=== PATIENT | male | born 1970 | race Caucasian/White ===

== ENCOUNTER → 2022-01-21 | Outpatient (CLI) | payer OTHER, SELFPAY ==
[2022-01-21 18:12] LABS: Cholesterol 212 mg/dL (200); High Density Lipoprotein 39 mg/dL; PSA,Total - Annual Screen 1.15 ng/mL (0.00-4.00); Triglycerides 259 mg/dL; Very Low Density Lipoprotein 52 mg/dL (5-40)
== END | disposition home or self-care (01) ==
LOC: MTLAB 15:51
PROVIDERS: PCP Family Medicine; Referring Provider Family Medicine; Visit Provider Family Medicine
DX: Z00.00 Encounter for general adult medical examination without abnormal findings (principal); Z12.5 Encounter for screening for malignant neoplasm of prostate
CPT/HCPCS: 36415; 80061; 84153; G0103

== ENCOUNTER → 2025-05-04 | Outpatient (CLI) | payer OTHER, SELFPAY ==
[2025-05-04 11:24] LABS: Hematocrit 43.3 % (40-54); Hemoglobin 15.0 g/dL (13.0-16.5); Immature Granulocytes Count 0.050 X10^3/uL (0.0-0.0); Mean Corp Hgb Conc 34.6 g/dL (32-36); Mean Corpuscular Volume 91.4 fL (80-94); Mean Platelet Vol. 9.3 fl (6.2-12.0); NRBC Flagged by Analyzer 0 % (0-5); Platelet Count 248 K/mm3 (150-450); RBC Distribution Width CV 13.3 % (11.6-14.6); RBC Distribution Width SD 44.8 fl (35.1-43.9); Red Blood Count 4.74 M/mm3 (4.6-6.2); White Blood Count 9.0 K/mm3 (4.4-11.0)
[2025-05-04 13:01] LABS: AST(SGOT) 19 U/L (<=37); Alanine Aminotransfer ALT/SGPT 16 U/L (<=46); Albumin, Serum 4.1 g/dL (3.5-5.0); Alkaline Phosphatase 91 U/L (40-129); Anion Gap 10 (5-15); BUN 16 mg/dL (4-19); BUN/Creat Ratio 16.0 RATIO (10-20); Calcium,Total 9.3 mg/dL (7.6-11.0); Carbon Dioxide 25.0 mmol/L (21.0-32.0); Chloride 105 mmol/L (98-108); Cholesterol 233 mg/dL (<=200); Globulin 2.8 g/dL (2.2-4.2); Glucose 92 mg/dL (70-99); Low Density Lipoprotein Calc. 154 mg/dL; Potassium 4.3 mmol/L (3.3-5.1); Triglycerides 122 mg/dL; Very Low Density Lipoprotein 24 mg/dL (5-40); cholesterol:hdl ratio screen 4.26
[2025-05-07 14:08] LABS: PSA, Total 1.2 ng/mL (0.0-4.0)
== END | disposition home or self-care (01) ==
LOC: LAB 10:51
PROVIDERS: PCP Family Medicine; Referring Provider Family Medicine; Visit Provider Family Medicine
DX: Z00.00 Encounter for general adult medical examination without abnormal findings (principal); Z12.5 Encounter for screening for malignant neoplasm of prostate; Z13.6 Encounter for screening for cardiovascular disorders; E78.2 Mixed hyperlipidemia
CPT/HCPCS: 36415; 80053; 80061; 83036; 84153; 84443; 85025

== ENCOUNTER 2025-06-22 07:52 | Day surgery (SDC) | payer OTHER, SELFPAY ==
[2025-06-22] VITALS (8 sets, daily range): BP systolic 122–147; BP diastolic 76–88; PULSE 46–65; RESP 16; TEMP 36.3–36.8; O2SAT 96–98; BMI 31.0
--- OUTSIDE RECORDS SUMMARY | 2025-06-22 07:56 | XMS RPT_ITS | CCD ---
Author Organization [facility] Care Team Providers Care Molder Meat Name Role Phone Megan Morales DO Primary Care Physician Megan Morales DO Attending Physician Megan Morales DO Referring Provider Megan Evans Referring Unavailable Carmen VSGrady, Megan Primary Care Unavailable Megan Evans Attending Unavailable Kang Rodríguez Attending Unavailable Carmen VSC, Megan Primary Care Unavailable Megan Evans Referring Unavailable Results Test Name Value Interpretation Reference Range Facility PSA Total (Rflx Free)on 04-17 COMMENT Comment Normal . [facility] Comment on above: Result Comment: The percent free PSA is performed on a reflex basis only when the total PSA is between 4.0 and 10.0 ng/mL. Performed at: - [address] [id number] Recovery Engineer: Pedro Harrington PhD, Phone: [phone] Performed By: #### L 501.7885, L3110.0100, L100.0100, L500.4050, L501.9520, L500.4100 #### [facility] [address] [place], [address] PSA, TOTAL 1.2 ng/mL Normal 0.0-4.0 [facility] Comment on above: Result Comment: Herbie limon ECLIA methodology. According to the [place] [employer], Serum PSA should decrease and remain at undetectable levels after radical prostatectomy. The AUA defines biochemical recurrence as an initial PSA value 0.2 ng/mL or greater followed by a subsequent confirmatory PSA value 0.2 ng/mL or greater. Values obtained with different assay methods or kits cannot be used interchangeably. Results cannot be interpreted as absolute evidence of the presence or absence of malignant disease. Performed By: #### L 501.9985, L3110.0100, L100.0100, L500.4050, L501.9520, L500.4100 #### [facility] [address] [place], [address] Absolute lymphocyte countOrd ered By: Megan Morales on 05-04-2025 Lymphocytes Auto (Unsp spec) [#/Vol] 4.66 10*3/uL High 0.83-4.51 [facility] Absolute neutrophil countOrd ered By: Megan Morales on 05-04-2025 Neutrophils (Bld) [#/Vol] 3.4 10*3/uL 2.0-7.7 [facility] Anion gap in Serum or Plasma Ordered By: Megan Morales on 05-04-2025 Anion gap [Moles/Vol] 10 mmol/L 5-15 [facility] Automated lymphocyte count a s percentage of total leukocytesOrdered By: Megan Morales on 05-04-2025 Lymphocytes/100 WBC Auto (Unsp spec) 51.7 % High 19-41 [facility] BUN/creatinine ratioOrdered By: Meganmaximino Morales on 05-04-2025 Urea nitrogen/Creatinine [Mass ratio] 16.0 mg/mg 10-20 [facility] Basophil percentageOrdered B y: Megan Morales on 05-04-2025 Basophils/100 WBC (Bld) 0.3 % 0-1 [facility] Bilirubin, totalOrdered By: Meganmaximino Morales on 05-04-2025 Bilirubin [Mass/Vol] 0.53 mg/dL 0.00-1.30 [facility] CBC W/Diff, Automatedon 04-16 Absolute Lymph 4.66 X10 3/uL High 0.83-4.51 [facility] Comment on above: Performed By: #### L 501.9985, L3110.0100, L100.0100, L500.4050, L501.9520, L500.4100 #### [facility] [address] [place], [address] Absolute Neut 3.4 X10 3/uL Normal 2.0-7.7 [facility] Comment on above: Performed By: #### L 501.9985, L3110.0100, L100.0100, L500.4050, L501.9520, L500.4100 #### [facility] [address] [place], [address] Basophils/100 WBC (Bld) 0.3 % Normal 0-1 [facility] Comment on above: Performed By: #### L 501.9985, L3110.0100, L100.0100, L500.4050, L501.9520, L500.4100 #### [facility] [address] [place], [address] Eosinophils/100 WBC (Bld) 1.4 % Normal 0-5 [facility] Comment on above: Performed By: #### L 501.9985, L3110.0100, L100.0100, L500.4050, L501.9520, L500.4100 #### [facility] [address] [place], [address] Erythrocyte distribution width (RBC) [Ratio] 13.3 % Normal 11.6-14.6 [facility] Comment on above: Performed By: #### L 501.9985, L3110.0100, L100.0100, L500.4050, L501.9520, L500.4100 #### [facility] [address] [place], [address] Hematocrit (Bld) [Volume fraction] 43.3 % Normal 40-54 [facility] Comment on above: Performed By: #### L 501.9985, L3110.0100, L100.0100, L500.4050, L501.9520, L500.4100 #### [facility] [address] [place], [address] Hemoglobin (Bld) [Mass/Vol] 15.0 g/dL Normal 13.0-16.5 [facility] Comment on above: Performed By: #### L 501.9985, L3110.0100, L100.0100, L500.4050, L501.9520, L500.4100 #### [facility] [address] [place], [address] IG% 0.600 Normal 0.0-0.9 [facility] Comment on above: Result Comment: IG% - Immature Granulocytes (promyelocytes, myelocytes and metamyelocytes) > 1% indicates that a LEFT SHIFT is Present. Performed By: #### L 501.9985, L3110.0100, L100.0100, L500.4050, L501.9520, L500.4100 #### [facility] [address] [place], [address] Lymphocytes/100 WBC (Bld) 51.7 % High 19-41 [facility] Comment on above: Performed By: #### L 501.9985, L3110.0100, L100.0100, L500.4050, L501.9520, L500.4100 #### [facility] [address] [place], [address] MCH (RBC) [Entitic mass] 31.6 pg Normal 27.0-32.0 [facility] Comment on above: Performed By: #### L 501.9985, L3110.0100, L100.0100, L500.4050, L501.9520, L500.4100 #### [facility] [address] [place], [address] MCHC (RBC) [Mass/Vol] 34.6 g/dL Normal 32-36 [facility] Comment on above: Performed By: #### L 501.9985, L3110.0100, L100.0100, L500.4050, L501.9520, L500.4100 #### [facility] [address] [place], [address] MCV (RBC) [Entitic vol] 91.4 fL Normal 80-94 [facility] Comment on above: Performed By: #### L 501.9985, L3110.0100, L100.0100, L500.4050, L501.9520, L500.4100 #### [facility] [address] [place], [address] Monocytes/100 WBC (Bld) 8.1 % Normal 0-10 [facility] Comment on above: Performed By: #### L 501.9985, L3110.0100, L100.0100, L500.4050, L501.9520, L500.4100 #### [facility] [address] [place], [address] Neutrophils/100 WBC (Bld) 37.9 % Low 47-70 [facility] Comment on above: Performed By: #### L 501.9985, L3110.0100, L100.0100, L500.4050, L501.9520, L500.4100 #### [facility] [address] [place], [address] Nucleated RBC (Bld) [#/Vol] 0 10*3/uL Normal 0-5 [facility] Comment on above: Performed By: #### L 501.9985, L3110.0100, L100.0100, L500.4050, L501.9520, L500.4100 #### [facility] [address] [place], [address] Platelet mean volume (Bld) [Entitic vol] 9.3 fL Normal 6.2-12.0 [facility] Comment on above: Performed By: #### L 501.9985, L3110.0100, L100.0100, L500.4050, L501.9520, L500.4100 #### [facility] [address] [place], [address] Platelets (Bld) [#/Vol] 248 10*3/uL Normal 150-450 [facility] Comment on above: Performed By: #### L 501.9985, L3110.0100, L100.0100, L500.4050, L501.9520, L500.4100 #### [facility] [address] [place], [address] RBC (Bld) [#/Vol] 4.74 10*6/uL Normal 4.6-6.2 [facility] Comment on above: Performed By: #### L 501.9985, L3110.0100, L100.0100, L500.4050, L501.9520, L500.4100 #### [facility] [address] [place], [address] RDW SD 44.8 fl High 35.1-43.9 [facility] Comment on above: Performed By: #### L 501.9985, L3110.0100, L100.0100, L500.4050, L501.9520, L500.4100 #### [facility] [address] [place], [address] WBC (Bld) [#/Vol] 9.0 10*3/uL Normal 4.4-11.0 [facility] Comment on above: Performed By: #### L 501.9985, L3110.0100, L100.0100, L500.4050, L501.9520, L500.4100 #### [facility] [address] [place], [address] Calculated very low density lipoprotein (VLDL) cholesterol measurementOrdered By: Megan Morales on 05-04-2025 Calculated very low density lipoprotein (VLDL) cholesterol measurement 24 mg/dL 5-40 [facility] Carbon dioxide, total [Moles /volume] in Central venous bloodOrdered By: Megan Morales on 05-04-2025 CO2 [Moles/Vol] 25.0 mmol/L 21.0-32.0 [facility] Chloride assayOrdered By: Casey Morales on 05-04-2025 Chloride [Moles/Vol] 105 mmol/L 98-108 [facility] Comprehensive Metabolic Prof ilon 05-04-2025 Albumin [Mass/Vol] 4.1 g/dL Normal 3.5-5.0 [facility] Comment on above: Performed By: #### L 501.9985, L3110.0100, L100.0100, L500.4050, L501.9520, L500.4100 #### [facility] [address] [place], [address] Albumin/Globulin [Mass ratio] 1.5 {ratio} Normal 0.9-2.4 [facility] Comment on above: Performed By: #### L 501.9985, L3110.0100, L100.0100, L500.4050, L501.9520, L500.4100 #### [facility] [address] [place], [address] ALK PHOS 91 U/L Normal 40-129 [facility] Comment on above: Performed By: #### L 501.9985, L3110.0100, L100.0100, L500.4050, L501.9520, L500.4100 #### [facility] [address] [place], [address] ALT [Catalytic activity/Vol] 16 U/L Normal <=46 [facility] Comment on above: Performed By: #### L 501.9985, L3110.0100, L100.0100, L500.4050, L501.9520, L500.4100 #### [facility] [address] [place], [address] AST [Catalytic activity/Vol] 19 U/L Normal <=37 [facility] Comment on above: Performed By: #### L 501.9985, L3110.0100, L100.0100, L500.4050, L501.9520, L500.4100 #### [facility] [address] [place], [address] Bilirubin [Mass/Vol] 0.53 mg/dL Normal 0.00-1.30 [facility] Comment on above: Performed By: #### L 501.9985, L3110.0100, L100.0100, L500.4050, L501.9520, L500.4100 #### [facility] [address] [place], [address] BUN/CRE 16.0 RATIO Normal 10-20 [facility] Comment on above: Performed By: #### L 501.9985, L3110.0100, L100.0100, L500.4050, L501.9520, L500.4100 #### [facility] [address] [place], [address] Calcium [Mass/Vol] 9.3 mg/dL Normal 7.6-11.0 [facility] Comment on above: Performed By: #### L 501.9985, L3110.0100, L100.0100, L500.4050, L501.9520, L500.4100 #### [facility] [address] [place], [address] Chloride [Moles/Vol] 105 mmol/L Normal 98-108 [facility] Comment on above: Performed By: #### L 501.9985, L3110.0100, L100.0100, L500.4050, L501.9520, L500.4100 #### [facility] [address] [place], [address] CO2 [Moles/Vol] 25.0 mmol/L Normal 21.0-32.0 [facility] Comment on above: Performed By: #### L 501.9985, L3110.0100, L100.0100, L500.4050, L501.9520, L500.4100 #### [facility] [address] [place], [place], [phone] Creatinine [Mass/Vol] 0.97 mg/dL Normal 0.70-1.20 [facility] Comment on above: Performed By: #### L 501.9985, L3110.0100, L100.0100, L500.4050, L501.9520, L500.4100 #### [facility] [address] [place], [place], [id number] ([phone]) GAP 10 Normal 5-15 [facility] Comment on above: Performed By: #### L 501.9985, L3110.0100, L100.0100, L500.4050, L501.9520, L500.4100 #### [facility] [address] [place], [place], [phone] ([address] GFR/1.73 sq M.predicted among non-blacks MDRD (S/P/Bld) [Vol rate/Area] 92 mL/min/{1.73_m2} Normal >60 [facility] Comment on above: Result Comment: mL/m in/1.73m2 CKD-EPI Creatinine Equation (2020) Performed By: #### L 501.9985, L3110.0100, L100.0100, L500.4050, L501.9520, L500.4100 #### [facility] [address] [place], [place], [phone] Globulin (S) [Mass/Vol] 2.8 g/dL Normal 2.2-4.2 [facility] Comment on above: Performed By: #### L 501.9985, L3110.0100, L100.0100, L500.4050, L501.9520, L500.4100 #### [facility] [address] [place], [address] Glucose [Mass/Vol] 92 mg/dL Normal 70-99 [facility] Comment on above: Performed By: #### L 501.9985, L3110.0100, L100.0100, L500.4050, L501.9520, L500.4100 #### [facility] [address] [place], [address] Potassium [Moles/Vol] 4.3 mmol/L Normal 3.3-5.1 [facility] Comment on above: Performed By: #### L 501.9985, L3110.0100, L100.0100, L500.4050, L501.9520, L500.4100 #### [facility] [address] [place], [address] Sodium [Moles/Vol] 139 mmol/L Normal 133-145 [facility] Comment on above: Performed By: #### L 501.9985, L3110.0100, L100.0100, L500.4050, L501.9520, L500.4100 #### [facility] [address] [place], [address] T PROT 6.8 g/dL Normal 5.9-8.4 [facility] Comment on above: Performed By: #### L 501.9985, L3110.0100, L100.0100, L500.4050, L501.9520, L500.4100 #### [facility] [address] [place], [address] Urea nitrogen [Mass/Vol] 16 mg/dL Normal 4-19 [facility] Comment on above: Performed By: #### L 501.9985, L3110.0100, L100.0100, L500.4050, L501.9520, L500.4100 #### [facility] [address] [place], [place], [id number] Eosinophil percentageOrdered By: Megan Morales on 05-04-2025 Eosinophils/100 WBC (Bld) 1.4 % 0-5 [facility] Erythrocyte distribution wid th ratioOrdered By: Meganmaximino Morales on 05-04-2025 Erythrocyte distribution width (RBC) [Ratio] 13.3 % 11.6-14.6 [facility] Erythrocyte distribution wid th standard deviationOrdered By: Meganmaximino Morales on 05-04-2025 Erythrocyte distribution width (RBC) [Ratio] 44.8 fl High 35.1-43.9 [facility] Glomerular filtration rate ( GFR) estimation/1.73 sq m using serum, plasma, or whole bOrdered By: Meganmaximino Morales on 05-04-2025 GFR/1.73 sq M.predicted among non-blacks MDRD (S/P/Bld) [Vol rate/Area] 92 mL/min/{1.73_m2} >60 [facility] Comment on above: mL/min/1.73m2 CKD-EP I Creatinine Equation (2020) Hematocrit Auto (Bld) [Volum e fraction]Ordered By: Megan Morales on 05-04-2025 Hematocrit (Bld) [Volume fraction] 43.3 % 40-54 [facility] Hemoglobin A1con 05-04-2025 HbA1c (Bld) [Mass fraction] 5.2 % Normal <=5.6 [facility] Comment on above: Result Comment: Norm al < 5.7 % Prediabetic 5.7 - 6.4 % Diabetic >or= 6.5 % Please note range changes. Performed By: #### L 501.9985, L3110.0100, L100.0100, L500.4050, L501.9520, L500.4100 #### [facility] [address] [place], [address] Hemoglobin A1c percentageOrd ered By: Megan Morales on 05-04-2025 HbA1c (Bld) [Mass fraction] 5.2 % <5.7 [facility] Comment on above: Normal < 5.7 % Predi abetic 5.7 - 6.4 % Diabetic >or= 6.5 % Please note range changes. Hemoglobin measurementOrdere d By: Megan Morales on 05-04-2025 Hemoglobin (Bld) [Mass/Vol] 15.0 g/dL 13.0-16.5 [facility] Immature granulocytes/100 WB C Auto (Bld)Ordered By: Megan Morales on 05-04-2025 Immature granulocytes/100 WBC (Bld) 0.600 % 0.0-0.9 [facility] Comment on above: IG% - Immature Granu locytes (promyelocytes, myelocytes and metamyelocytes) > 1% indicates that a LEFT SHIFT is Present. LDL calc ser/plasOrdered By: Megan Morales on 05-04-2025 Cholesterol in LDL [Mass/Vol] 154 mg/dL [facility] Comment on above: Jwxunnvxlv=597-601 m g/dL & Higher Afao=450 mg/dL or greaterFriedwald Equation for LDL-C Laboratory - Chemistry and C hemistry - challengeOrdered By: Megan Morales on 05-04-2025 AST [Catalytic activity/Vol] 19 U/L <38 [facility] Lipid Profileon 05-04-2025 CHOL:HDL 4.26 Normal [facility] Comment on above: Performed By: #### L 501.9985, L3110.0100, L100.0100, L500.4050, L501.9520, L500.4100 #### [facility] [address] [place], [place], [address] Cholesterol [Mass/Vol] 233 mg/dL High <=200 [facility] Comment on above: Result Comment: Chol esterol level, Desirable <200 mg/dL Borderline high cholesterol 200-239 mg/dL High cholesterol >=240 mg/dL Recommendations of the NCEP Adult Treatment Panel for the following risk-cutoff thresholds for the [place] population. Performed By: #### L 501.9985, L3110.0100, L100.0100, L500.4050, L501.9520, L500.4100 #### [facility] [address] [place], [address] Cholesterol in HDL [Mass/Vol] 55 mg/dL Normal [facility] Comment on above: Result Comment: Mitzy onal Cholesterol Education Program (NCEP) guidelines: <40 mg/dL: Low HDL-cholesterol (major risk factor for CHD) >= 60 mg/dL: High HDL-cholesterol (negative risk factor for CHD) HDL-cholesterol is affected by a number of factors, e.g. smoking, exercise, hormones, sex and age. Performed By: #### L 501.9985, L3110.0100, L100.0100, L500.4050, L501.9520, L500.4100 #### [facility] [address] [place], [address] Cholesterol in LDL [Mass/Vol] 154 mg/dL Normal [facility] Comment on above: Result Comment: Bord pvwova=440-582 mg/dL Higher Dsgv=399 mg/dL or greater Friedwald Equation for LDL-C Performed By: #### L 501.9985, L3110.0100, L100.0100, L500.4050, L501.9520, L500.4100 #### [facility] [address] [place], [address] Cholesterol in VLDL [Mass/Vol] 24 mg/dL Normal 5-40 [facility] Comment on above: Performed By: #### L 501.9985, L3110.0100, L100.0100, L500.4050, L501.9520, L500.4100 #### [facility] [address] [place], [address] Triglyceride [Mass/Vol] 122 mg/dL Normal [facility] Comment on above: Result Comment: The drugs N-Acetylcysteine and Metamizole may falsely depress this assay. Normal range: <150 mg/dL Borderline High: 150-199 mg/dL High: 200-499 mg/dL Very High: >500 mg/dL Performed By: #### L 501.9985, L3110.0100, L100.0100, L500.4050, L501.9520, L500.4100 #### [facility] [place], [address] MCV (mean corpuscular volume ) determinationOrdered By: Megan Morales on 05-04-2025 MCV (RBC) [Entitic vol] 91.4 fL 80-94 [facility] Mean corpuscular hemoglobin (MCH) determinationOrdered By: Megan Morales on 05-04-2025 MCH (RBC) [Entitic mass] 31.6 pg 27.0-32.0 [facility] Mean corpuscular hemoglobin concentration (MCHC) determinationOrdered By: Meganmaximino Morales on 05-04-2025 MCHC (RBC) [Mass/Vol] 34.6 g/dL 32-36 [facility] Mean platelet volume determi nationOrdered By: Megan Morales on 05-04-2025 Platelet mean volume (Bld) [Entitic vol] 9.3 fL 6.2-12.0 [facility] Monocyte percentageOrdered B y: Megan Morales on 05-04-2025 Monocytes/100 WBC (Bld) 8.1 % 0-10 [facility] Neutrophil percentageOrdered By: Meganmaximino Morales on 05-04-2025 Neutrophils/100 WBC (Bld) 37.9 % Low 47-70 [facility] No Panel InformationOrdered By: Megan Morales on 05-04-2025 Prostate Specific Antigen Comment . [facility] Comment on above: The percent free PSA is performed on a reflex basis onlywhen the total PSA is between 4.0 and 10.0 ng/mL.Performed at: [facility] [address] [id number] Director: Pedro Harrington PhD, Phone: [phone] Nucleated red blood cell per centageOrdered By: Megan Morales on 05-04-2025 Nucleated RBC/100 WBC (Bld) [Ratio] 0 % 0-5 [facility] Platelet countOrdered By: Casey Morales on 05-04-2025 Platelets (Bld) [#/Vol] 248 10*3/uL 150-450 [facility] Potassium measurement (mass/ volume)Ordered By: Megan Morales on 05-04-2025 Potassium (Unsp spec) [Mass/Vol] 4.3 mmol/L 3.3-5.1 [facility] RBC Auto (Bld) [#/Vol]Ordere d By: Megan Morales on 05-04-2025 RBC (Bld) [#/Vol] 4.74 10*6/uL 4.6-6.2 [facility] Screening total cholesterol/ high density lipoprotein (HDL) cholesterol ratioOrdered By: Megan Morales on 05-04-2025 Cholesterol.total/Choles terol in HDL [Mass ratio] 4.26 {ratio} [facility] Serum creatinine measurement (mass/volume)Ordered By: Megan Morales on 05-04-2025 Creatinine [Mass/Vol] 0.97 mg/dL 0.70-1.20 [facility] Serum globulin measurementOr dered By: Megan Morales on 05-04-2025 Globulin (S) [Mass/Vol] 2.8 g/dL 2.2-4.2 [facility] Serum glucose measurement (m ass/volume)Ordered By: Megan Morales on 05-04-2025 Glucose [Mass/Vol] 92 mg/dL 70-99 [facility] Serum or plasma alanine donahue otransferase (ALT) measurementOrdered By: Megan Morales on 05-04-2025 ALT [Catalytic activity/Vol] 16 U/L <47 [facility] Serum or plasma albumin ander urement (mass/volume)Ordered By: Meagn Morales on 05-04-2025 Albumin [Mass/Vol] 4.1 g/dL 3.5-5.0 [facility] Serum or plasma albumin/glob ulin mass ratioOrdered By: Megan Morales on 05-04-2025 Albumin/Globulin [Mass ratio] 1.5 {ratio} 0.9-2.4 [facility] Serum or plasma alkaline federico sphatase measurementOrdered By: Megan Morales on 05-04-2025 ALP [Catalytic activity/Vol] 91 U/L 40-129 [facility] Serum or plasma calcium ander urement (mass/volume)Ordered By: Megan Morales on 05-04-2025 Calcium [Mass/Vol] 9.3 mg/dL 7.6-11.0 [facility] Serum or plasma cholesterol in HDL measurement (mass/volume)Ordered By: Megan Morales on 05-04-2025 Cholesterol in HDL [Mass/Vol] 55 mg/dL >40 [facility] Comment on above: National Cholesterol Education Program (NCEP) guidelines:<40 mg/dL: Low HDL-cholesterol (major risk factor for CHD)>= 60 mg/dL: High HDL-cholesterol (negative risk factor for CHD)HDL-cholesterol is affected by a number of factors, e.g. smoking, exercise, hormones, sex and age. Serum or plasma cholesterol measurement (mass/volume)Ordered By: Megan Morales on 05-04-2025 Cholesterol [Mass/Vol] 233 mg/dL High <201 [facility] Comment on above: Cholesterol level, D esirable <200 mg/dLBorderline high cholesterol 200-239 mg/dLHigh cholesterol >=240 mg/dLRecommendations of the NCEP Adult Treatment Panel for the following risk-cutoff thresholds for the [place] Citizen [place] population. Serum or plasma urea nitroge n measurement (mass/volume)Ordered By: Megan Morales on 05-04-2025 Urea nitrogen [Mass/Vol] 16 mg/dL 4-19 [facility] Sodium levelOrdered By: Werner Morales on 05-04-2025 Sodium [Moles/Vol] 139 mmol/L 133-145 [facility] TSH DL <= 0.005 mIU/L QnOrde red By: Megan Morales on 05-04-2025 TSH Qn 2.040 uIU/mL 0.300-4.200 [facility] Thyroid Stim Hormone (TSH)on 05-04-2025 TSH 2.040 uIU/mL Normal 0.300-4.200 [facility] Comment on above: Performed By: #### L 501.9985, L3110.0100, L100.0100, L500.4050, L501.9520, L500.4100 #### [facility] [address] [place], [address] Total proteinOrdered By: Lilian Morales on 05-04-2025 Protein [Mass/Vol] 6.8 g/dL 5.9-8.4 [facility] Triglycerides measurementOrd ered By: Megan Morales on 05-04-2025 Triglyceride [Mass/Vol] 122 mg/dL <199 [facility] Comment on above: The drugs N-Acetylcy steine and Metamizole may falsely depress this assay. Normal range: <150 mg/dLBorderline High: 150-199 mg/dLHigh: 200-499 mg/dLVery High: >500 mg/dL White blood cell (WBC) count Ordered By: Megan Morales on 05-04-2025 WBC (Bld) [#/Vol] 9.0 10*3/uL 4.4-11.0 [facility] Basophil percentageon 2021 Cholesterol [Mass/Vol] 212 mg/dL <200 [facility] Work Phone: Comment on above: <200 mg/dL Desirable 200-240 mg/dL Borderline >240 mg/dL High Risk Triglyceride [Mass/Vol] 259 mg/dL [facility] Work Phone: Comment on above: The drugs N-Acetylcy steine and Metamizole may falsely depress this assay.Serum Triglycerides Reference Interval Normal <150 mg/dL Borderline high 150 - 199 mg/dL High 200 - 499 mg/dL Very High > or = 500 mg/dL No Panel Informationon 01-21 Prostate Specific Antigen Screen 1.15 ng/mL 0.00-4.00 [facility] Work Phone: Comment on above: This test was perfor med using the TPSA assay method for the[facility] chemistry system. Values obtained with differentassay methods cannot be used interchangably.When changing PSA assays in the course of monitoring apatient, additional sequential testing should be carriedout to confirm baseline values. Serum or plasma cholesterol in HDL measurement (mass/volume)on 01-21-2022 Cholesterol in HDL [Mass/Vol] 39 mg/dL [facility] Work Phone: Comment on above: The drugs N-Acetylcy steine and Metamizole may falsely depress this assay. Reference Range HDL <40 mg/dL Low HDL Cholesterol HDL >or= 60 mg/dL High HDL Cholesterol Serum or plasma cholesterol in VLDL measurement (mass/volume)on 01-21-2022 Cholesterol in VLDL [Mass/Vol] 52 mg/dL 5-40 [facility] Work Phone: Serum or plasma low density lipoprotein (LDL) cholesterol measurement (mass/volume)on 01-21-2022 Cholesterol in LDL [Mass/Vol] 121 mg/dL 0-130 [facility] Work Phone: Encounters Encounter Date Encounter Type Care Provider Facility Start: 06-22-2025 ambulatory Kang Serrato lity:[facility] Start: 06-01-2025 Encounter for genera l adult medical examination without abnormal findings Megan Morales [facility] Start: 05-04-2025 End: 05-04-2025 ambulatory Meganfer Penanger DO Work Phone: -Laboratory Start: 05-04-2025 End: 05-04-2025 Patient encounter procedure Meganfer Penanger DO -Laboratory Work Phone: Start: 05-04-2025 End: 05-04-2025 ambulatory Megan Carmen [facility] Facility:[facility] Start: 01-21-2022 End: 01-21-2022 Patient encounter procedure [facility]-Laboratory, [place] Procedures Date Procedure Procedure Detail Performing Clinician Start: 05-04-2025 Prostate specific an tigen measurement Megan Carmen DO Work Phone: Comment on above: [employer] ECLIA methodol ogy.According to the [employer] [place] [employer], Serum PSAshould decrease and remain at undetectable levels afterradical prostatectomy. The AUA defines biochemicalrecurrence as an initial PSA value 0.2 ng/mL or greaterfollowed by a subsequent confirmatory PSA value 0.2 ng/mLor greater. Values obtained with different assay methods orkits cannot be used interchangeably. Results cannot beinterpreted as absolute evidence of the presence or absenceof malignant disease. Payers Date Payer Category Payer Self-pay [id number] 2025 Unknown [id number] Private Health Insurance SELF PAY INSURAN [id number] Unknown [id number] Unknown [id number] Social History Date Type Detail [facility] Work Phone: Start: 1970 Sex Assigned At Male [facility] Tobacco smoking stat [facility] Unknown if ever smoked [facility] Work Phone: Sex Male [facility] Evaluation note Note Date & Type Note Facility Evaluation note No assessment information availa ble [facility] Work Phone: Reason for referral (narrative) Note Date & Type Note Facility Reason for referral (narrative) No reason for referral information available [facility] Work Phone: Summary Purpose Family History No Family History Records Found Advance Directives No Advanced Directives Records Found Additional Source Comments Goals (unrecognized section and content) Goals may be documented in a n alternate sectionGoals may be documented in an alternate section Care Teams (unrecognized sec tion and content) Team Status: Active Member Role/Relationship Status Dates SANDHYA MEYERS Primary care physician Active Megan SARMIENTO DO Primary care physician Active Team Status: Inactive Member Role/Relationship Status Dates Megan SARMIENTO, Primary care physician Active Start: May 04, 2025 End: May 04, 2025 Megan Carmen [facility], DO Attending physician Active Start: May 04, 2025 End: May 04, 2025 Megan Carmen [facility], DO Referring Provider Active Start: May 04, 2025 End: May 04, 2025 (unrecognized sect ion and content) No Status Records Found INFORMATION SOURCE (unrecogn ized section and content) DATE CREATED AUTHOR 06/22/2025 [facility] FOR RECORDS PERTAINING TO PATIENTS WHO ARE OR HAVE BEEN ENROLLED IN A CHEMICAL DEPENDENCY/SUBSTANCEABUSE PROGRAM, SOME INFORMATION MAY BE OMITTED. This clinical summary was aggregated from multiple sources. Caution should be exercised in using it in the provision of clinical care. This summary normalizes information from multiple sources, and as a consequence, information in this document may materially change the coding, format and clinical context of patient data. In addition, data may be omitted in some cases. CLINICAL DECISIONS SHOULD BE BASED ON THE PRIMARY CLINICAL RECORDS. [facility] [facility]. provides no warranty or guarantee of the accuracy or completeness of information in this document.
[2025-06-22] MEDS: Lactated Ringers 1,000 ML 15 ML IV (08:15)
--- NOTE | 2025-06-22 08:47 | PCM.PRE.AN2 ---
ASA Classification* ASA Classification ASA Classification: 1 Assessment & Plan Anesthesia* Anesthesia Assessment Anesthesia Assessment: Discussed sedation and/or anesthesia options, risks, benefits, and alternatives with patient/parents/legal guardian/POA. Questions invited. The patient/parents/legal guardian/POA seems to understand and agrees to proceed with anesthesia plan. Reviewed the physical assessment, medical history, allergy history and patient home medications list prior to surgery/procedure/anesthetic and documented any changes. Performed airway and anesthesia risk assessments. Anesthesia Type Anesthesia Type: MAC History Source History Obtained from:: Patient and Chart Anesthesia Focused Assessment* Temperature: 98 F Pulse Rate: 65 Blood Pressure: 147/85 Respiratory Rate: 16 Pulse Ox: 98 Oxygen Delivery Method: Room Air Airway Assessment Mouth opens: >3 cm Mallampati Score: III Teeth Condition: Intact Neck Range of motion (ROM): Full ROM Labs Anesthesia Preop lab: CBC WBC, (4.4-11.0) 9.0 K/mm3 05/04/25, 10:56 RBC, (4.6-6.2) 4.74 M/mm3 05/04/25, 10:56 Hgb, (13.0-16.5) 15.0 g/dL 05/04/25, 10:56 Hct, (40-54) 43.3 % 05/04/25, 10:56 Plt Count, (150-450) 248 K/mm3 05/04/25, 10:56 CHEMISTRY Potassium, (3.3-5.1) 4.3 mmol/L 05/04/25, 10:56 Sodium, (133-145) 139 mmol/L 05/04/25, 10:56 BUN, (4-19) 16 mg/dL 05/04/25, 10:56 Creatinine, (0.70-1.20) 0.97 mg/dL 05/04/25, 10:56 Glucose, (70-99) 92 mg/dL 05/04/25, 10:56 TSH, (0.300-4.200) 2.040 uIU/mL 05/04/25, 10:56 COAG Pre-Assessment Diagnosis/Proposed Procedure Planned Operative Procedure(s): CSCOPE Anesthesia History 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 When Was Last Pacemaker Check QUESTION #4 FULL TEXT: You/Your Family Experience fever (hyperthermia) with Anesthesia Last Oral Intake Last Oral intake: Last Oral Intake NPO since 0000 Meds taken in AM with sips of water? Meds patient instructed to take am of surgery Any additional information?: Yes NPO since: 00:00 PONV PONV - geological survey field assistant: PONV - geological survey field assistant Female No 06/20/25 12:52 HX of Motion Sickness No 06/20/25 12:52 HX of N/V After Surgery No 06/20/25 12:52 Non-Smoker Yes 06/20/25 12:52 Duration of Surgery greater No 06/20/25 12:52 than 60 minutes Number of Risk Factors 1 06/20/25 12:52 PONV Score Low Risk 06/20/25 12:52 Respiratory Assessment Respiratory Assessment - geological survey field assistant: Respiratory Tract Infection Hx - geological survey field assistant Hx Respiratory Tract Infection No 06/20/25 12:52 STOP Sleep Apnea STOP Sleep Apnea - geological survey field assistant: STOP Sleep Apnea - geological survey field assistant Hx Hypertension No 06/20/25 12:52 Hx Sleep Apnea No 06/20/25 12:52 CPAP BIPAP Do you snore loudly (louder No 06/20/25 12:52 than talking or can be heard Do you often feel tired/ No 06/20/25 12:52 fatigued/ sleepy during daytime? Has anyone observed you stop No 06/20/25 12:52 breathing during sleep? STOP Results Negative 06/20/25 12:52 QUESTION #5 FULL TEXT : Do you snore loudly (louder than talking or can be heard through closed doors)? Tobacco Use History Tobacco Use History - geological survey field assistant: Tobacco Use History - geological survey field assistant Tobacco Use Smoking Status Former smoker 06/20/25 12:52 Hx Tobacco Use No 06/20/25 12:52 Years Smoking Packs Smoked per Day Smoking Cessation Date was Yes - quit smoking within 15 06/20/25 12:52 within the last 15 years years Hx Smoking Cessation Date 08/16/09 06/20/25 12:52 Hx Smoking Cessation Counseling Hematologic Medial History Hematologic Hx - geological survey field assistant: Hematologic Medical Hx - documentation clerk Hx of Blood Transfusion No 06/20/25 12:52 Hx of Transfusion in last 3 No 06/20/25 12:52 Months Date of Last Transfusion (if within last 3 months) Ever experience any problems No 06/20/25 12:52 with transfusion(s)? Specify any problems Hx of Preganancy in last 3 N/A 06/20/25 12:52 Months Nurse Filling Out Transfusion NBUCHER 06/20/25 12:52 & Questions: Date: 06/20/25 06/20/25 12:52 Time: 12:52 06/20/25 12:52 Patient unable to answer at this time (ie. confused, unrespo /Reproduction History /Reproductive History - geological survey field assistant: /Reproductive Hx- geological survey field assistant Hx Now No 06/20/25 12:52 Gestational Age (in weeks): EDC: Hx Hx Para Hx Section SAB No 06/20/25 12:52 Does the father of the baby or his family experience fever w Father of the baby Malignant Hypertension history comment Active Medications Active Medications: Current Medications Generic Name Dose Route Start Last Admin Trade Name Freq PRN Reason Stop Dose Admin Lactated Ringer's 1,000 mls @ 15 mls/hr 06/22/25 08:15 06/22/25 08:15 IV 15 mls/hr .Q48H SISI Administration PFSH Medical History Former smoker Home Medications Medication Instructions Recorded Last Taken Type NK 06/20/25 Unknown History Allergy/AdvReac Type Severity Reaction Status Date / Time No Known Allergies Allergy Verified 06/20/25 12:51 Surgical History History of hernia repair History of tonsillectomy History of wisdom tooth extraction Social History Smoking Status: Former smoker Review of Systems (Anesthesia) ROS Narrative System reviewed and no additional complaints, except as documented.
--- NOTE | 2025-06-22 08:53 | HP.PCM_ITS ---
HPI - General HPI Narrative BERTRAM SZYMANSKI, is a 55 M who presents for screening colonoscopy. He has never had a colonoscopy in the past. He denies abdominal pain or blood in the stool. No family history of colon cancer. PFSH Medical History Former smoker Home Medications Medication Instructions Recorded Last Taken Type NK 06/20/25 Unknown History Allergy/AdvReac Type Severity Reaction Status Date / Time No Known Allergies Allergy Verified 06/20/25 12:51 Surgical History History of hernia repair History of tonsillectomy History of wisdom tooth extraction Social History Smoking Status: Former smoker Past Medical/Surgical History Planned Operation Planned Operative Procedure(s): CSCOPE Previous Hospitalizations/Surgeries HX Hospitalizations: No Any Problems With Anesthesia: No You/Your Family Experience Fever (Hyperthermia) With Anes: No Cholinesterase deficiency: No Cardiovascular Hx Hypertension: No Respiratory Hx Sleep Apnea: No Hx Respiratory Tract Infection/Cold (presently): No Do You Snore Loudly (louder than talking or can be heard): No Do You Often Feel Tired/ Fatigued/ Sleepy Dring Daytime?: No Has Anyone Observed You Stop Breathing During Sleep?: No Result (for STOP score): Negative Smoking Status: Former smoker Neurological Does patient have nerve stimulator: No Reproduction : No Miscellaneous Recent Exposure to Contagious Disease: No Allergies No Known Allergies Allergy (Verified 06/20/25 12:51) Discharge Is Pt Admitted From a Long Term, or a Penitentiary: No After D/C, Where Do you Plan to Go: Return Home Vital Signs Vital Signs Vital Signs: 06/22/25 08:42 06/22/25 08:42 Temperature 98 F Temperature Source Temporal Pulse Rate 65 Respiratory Rate 16 Respiratory Pattern Normal Blood Pressure 147/85 H Blood Pressure Mean 105 Blood Pressure Source Monitor Blood Pressure Position Semi-Fowlers Blood Pressure Location Right Arm Pulse Ox 98 Oxygen Delivery Method Room Air Weight Weight: 229 lb 0.964 oz Body Mass Index (BMI) 31.0 Physical Exam Const alert and oriented x3 HEENT normocephalic Eyes PERRL Resp normal respiratory effort and normal air movement Cardio regular rate and regular rhythm GI soft to palpation, non-tender and non-distended Extremity normal to inspection Assessment & Plan Assessment/Plan (1) Screen for colon cancer: PLAN: I explained endoscopy in detail to the patient. I explained the risks including but not limited to stroke or heart attack with anesthesia, perforation of the GI tract, bleeding, infection. I explained that any of these could necessitate further emergency surgery. The patient understands and all questions were answered sufficiently. The patient wishes to proceed with procedure. Kang Rodríguez MD Pager: [facility] [address] [place] [address] [address] [place] [address] Office: Surgery Risks - Colonoscopy Risks Include but are not Limited To: Risks include but are not limited to: Bleeding, perforation requiring further surgery, inability to complete colonoscopy requiring barium enema.
[2025-06-22] MEDS: LACTATED RINGERS IV (08:58)
--- NOTE | 2025-06-22 09:23 | PCM.POST.ANE ---
Anesthesia: Postop Eval I Current Vital Signs Temperature: 97.3 F Pulse Rate: 52 Blood Pressure: 126/76 Respiratory Rate: 16 Pulse Ox: 96 Oxygen Delivery Method: Room Air Assessment Airway patent: Yes Spontaneous unlabored respirations: Yes Mental status: Asleep nausea: No Vomiting: No Anesthesia Complication: No Fluid Hydration Crystalloid volume administer (ml): 250 Total IV fluid infused: 250 Progress Note Anesthesia document: Postop Eval 1 completed: Yes
--- NOTE | 2025-06-22 09:25 | OP.COLON_ITS ---
Patient Name: Emery Wall Procedure Date: 06/22/2025 9:02 AM Date of : 1970 Age: 55 Procedure: Colonoscopy Indications: Screening for colorectal malignant neoplasm Providers: Kang Rodríguez MD Referring MD: Megan Morales Do Medicines: Propofol per Anesthesia Patient Profile: This is a 55 year old male. Refer to note in patient chart for documentation of history and physical. Last Colonoscopy: none. The patient's first colonoscopy is today. Complications: No immediate complications. Procedure: Pre-Anesthesia Assessment: - Prior to the procedure, a History and Physical was performed, and patient medications and allergies were reviewed. The patient's tolerance of previous anesthesia was also reviewed. The risks and benefits of the procedure and the sedation options and risks were discussed with the patient. All questions were answered, and informed consent was obtained. Prior Anticoagulants: The patient has taken no anticoagulant or antiplatelet agents. After reviewing the risks and benefits, the patient was deemed in satisfactory condition to undergo the procedure. After I obtained informed consent, the scope was passed under direct vision. Throughout the procedure, the patient's blood pressure, pulse, and oxygen saturations were monitored continuously. The colonoscope was introduced through the anus and advanced to the cecum, identified by appendiceal orifice and ileocecal valve. The colonoscopy was performed without difficulty. The patient tolerated the procedure well. The quality of the bowel preparation was good. The ileocecal valve, appendiceal orifice, and rectum were photographed. Scope In: 9:04:58 AM Scope Withdrawal Time 0 hours 6 minutes 5 seconds Scope Out: 9:17:20 AM Total Procedure Duration Time 0 hours 12 minutes 22 seconds Findings: The entire examined colon appeared normal on direct and retroflexion views. Impression: - The entire examined colon is normal on direct and retroflexion views. - No specimens collected. Recommendation: - Discharge patient to home. - Discharge patient to home. - Resume previous diet. - Continue present medications. - Repeat colonoscopy in 10 years for screening purposes. Procedure Code(s): --- Professional --- 79107, Colonoscopy, flexible; diagnostic, including collection of specimen(s) by brushing or washing, when performed (separate procedure) Diagnosis Code(s): --- Professional --- Z12.11, Encounter for screening for malignant neoplasm of colon CPT copyright 2021 [employer]. All rights reserved. The codes documented in this report are preliminary and upon clean room assembler review may be revised to meet current compliance requirements. Kang Rodríguez MD 06/22/2025 9:25:13 AM This report has been signed electronically. Number of Addenda: 0 Note Initiated On: 06/22/2025 9:02 AM
--- NOTE | 2025-06-22 09:25 | OP.PROVAT_ITS ---
06/22/2025 Megan Morales Do Re : Colonoscopy procedure for Emery Wall Dear Carmen This procedure was performed on Sunday, June 22, 2025. My impressions and recommendations are as follows: Impressions : - The entire examined colon is normal on direct and retroflexion views. - No specimens collected. Recommendations : - Discharge patient to home. - Discharge patient to home. - Resume previous diet. - Continue present medications. - Repeat colonoscopy in 10 years for screening purposes. My findings are described in the full procedure note, which is enclosed. If I can be of further assistance, please feel free to contact me at Doctor phone number(s): , Work: . Sincerely, Kang Rodríguez MD 06/22/2025 9:25:13 AM This report has been signed electronically.
--- NOTE | 2025-06-22 12:43 | POSTOPAN2_ITS ---
Anesthesia Postop Eval I Sum Postop Eval Completion status Anesthesia document: Postop Eval 1 completed: Yes Anesthesia Postop Eval I Summary Anesthesia Postop Eval I Summary: Anesthesia Postop Eval I: Assessment Summary Airway patent Yes 06/22/25 09:24 [email or web address] Spontaneous unlabored Yes 06/22/25 09:24 RUBBER [email or web address] respirations Mental status Asleep 06/22/25 09:24 RUBBER [email or web address] nausea No 06/22/25 09:24 RUBBER ROLLER [email or web address] Vomiting No 06/22/25 09:24 RUBBER [email or web address] [email or web address] Anesthesia Postop Eval I: Fluid Summary Crystalloid volume administer 250 06/22/25 09:24 RUBBER [email or web address] (ml) Colloids volume administered ( ml) Blood Product volume administered (ml) Total IV fluid infused 250 06/22/25 09:24 RUBBER ROLLER [email or web address] Anesthesia Postop Eval I: Summary Notes Anesthesia Complication No 06/22/25 09:24 RUBBER ROLLER [email or web address] Anesthesia Complication Comment: Post-operative progress note Anesthesia: Postop Eval II Evaluation Mental status: Awake Pain Level: 0 nausea: No Vomiting: No Complications Anesthesia Complication: No
--- NOTE | 2025-06-22 12:43 | PCM.POSTANE2 ---
Anesthesia Postop Eval I Sum Postop Eval Completion status Anesthesia document: Postop Eval 1 completed: Yes Anesthesia Postop Eval I Summary Anesthesia Postop Eval I Summary: Anesthesia Postop Eval I: Assessment Summary Airway patent Yes 06/22/25 09:24 VP [email or web address] Spontaneous unlabored Yes 06/22/25 09:24 VP [email or web address] respirations Mental status Asleep 06/22/25 09:24 VP [email or web address] nausea No 06/22/25 09:24 VP [email or web address] Vomiting No 06/22/25 09:24 VP [email or web address] Anesthesia Postop Eval I: Fluid Summary Crystalloid volume administer 250 06/22/25 09:24 VP [email or web address] (ml) Colloids volume administered ( ml) Blood Product volume administered (ml) Total IV fluid infused 250 06/22/25 09:24 VP [email or web address] Anesthesia Postop Eval I: Summary Notes Anesthesia Complication No 06/22/25 09:24 VP [email or web address] Anesthesia Complication Comment: Post-operative progress note Anesthesia: Postop Eval II Evaluation Mental status: Awake Pain Level: 0 nausea: No Vomiting: No Complications Anesthesia Complication: No
== END 2025-06-22 10:13 | disposition home or self-care (01) ==
LOC: EN 07:53 → AC 07:54
PROVIDERS: PCP Family Medicine; Referring Provider Family Medicine; Visit Provider Surgery
DX: Z12.11 Encounter for screening for malignant neoplasm of colon (principal); Z87.891 Personal history of nicotine dependence
CPT/HCPCS: 45378; J2405